=== PATIENT | female | born 1960 | race Caucasian/White ===

== ENCOUNTER → 2022-02-20 07:33 | Outpatient (CLI) | payer OTHER, SELFPAY ==
--- NOTE | 2022-02-20 | DI.MRI.S_ITS ---
PROCEDURE: MR LUMBAR SPINE WO CON INDICATIONS: LUMBAR RADICULOPATHY TECHNIQUE: Noncontrast sagittal T1 spin echo and T2 fast echo, sagittal STIR, and T2 fast spin echo through the lumbar spine. In cases with scoliosis, additional coronal T2 fast spin echo may be performed. COMPARISON: None. FINDINGS: Image quality: Excellent. Alignment and Curvature: There is normal bony alignment. Bone Marrow: Marrow is of normal overall signal. Scattered foci are seen, which are hyperintense on T1-weighted and T2-weighted imaging, which are most consistent with benign vertebral body hemangiomas. No acute vertebral body compression fractures. Spinal Cord: Conus medullaris terminates at the L1 level. Visualized cord demonstrates normal signal and size. Paraspinous Soft Tissues: No paravertebral masses. T12-L1: Normal appearance. L1-L2: Normal appearance. L2-L3: The disc height is well-preserved. Loss of disc signal is seen at this level. Mild disc bulge is seen, which is slightly eccentric to the right. There is mild right-sided and no significant left-sided neural foraminal narrowing. Minimal central canal narrowing is seen. L3-L4: The disc height is well-preserved. Loss of disc signal is seen at this level. Mild generalized disc bulge is seen. There is mild left-sided and no significant right-sided neural foraminal narrowing. The central canal is widely patent. L4-L5: The disc height is well-preserved. Loss of disc signal is seen at this level. Mild generalized disc bulge is seen. At least moderate facet hypertrophy can be seen. There is [id number] bilateral neural foraminal narrowing seen. No central canal narrowing is seen. L5-S1: The disc height is well-preserved. Loss of disc signal is seen at this level. Mild generalized disc bulge is seen. Mild facet joint hypertrophy is seen. There is [id number] right-sided and at least moderate left-sided neural foraminal narrowing. There is a mild degree of compression seen upon the exiting left L5 nerve root. Mild central canal narrowing is seen, which is largely caused by prominent epidural fat. IMPRESSION: Multiple levels of lumbar spine degenerative change are seen, which are overall worst at the L5-S1 level, where there is at least moderate left-sided neural foraminal narrowing, with associated compression upon the left L5 nerve root. Dictated by: Dov Cronin M.D. on 02/20/2022 at 8:27 Approved by: Dov Cronin M.D. on 02/20/2022 at 8:32
== END ==
PROVIDERS: Family Provider Physician Assistant Medical; PCP Physician Assistant Medical; Referring Provider Neurological Surgery; Visit Provider Neurological Surgery
DX: M47.26 Other spondylosis with radiculopathy, lumbar region (principal); M47.27 Other spondylosis with radiculopathy, lumbosacral region; M48.07 Spinal stenosis, lumbosacral region
CPT/HCPCS: 72148